=== PATIENT | female | born 1945 | race Native Hawaiian/Other Pacific Islander ===

== ENCOUNTER 2017-09-17 16:01 | Observation (INO) | payer MEDICARE ==
[2017-09-17 16:01] VITALS: BMI 26.0
--- NOTE | 2017-09-17 17:29 | C.PDOC ---
History Of Present Illness 71yo female with history of DM, hypertension, presents to ED for evaluation of sudden onset blurry vision bilaterally. 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 She reports the symptoms resolved spontaneously after a few seconds. She denies any headache or persistent vision changes but she feels as if her head is "heavy." She reports feeling lightheaded and states she has been feeling such over the pat couple weeks. She admits she is non-compliant with her medications for hypertension but took Lisinopril 20mg PO today. She is complaint with her diabetes medication and takes Metformin as prescribed. Patient denies any chest pain, sensoyr changesm facial droop, slurred speech, palpitations, shortness of breath. No other complaints. Time Seen by Provider: 09/17/17 16:30 Chief Complaint (Nursing): Dizziness/Lightheaded History Per: Patient History/Exam Limitations: no limitations Onset/Duration Of Symptoms: Hrs Current Symptoms Are (Timing): Better Activity At Onset Of Symptoms: Standing Seizure Or Post-ictal Symptoms: None Fall Associated With With Symptoms: Yes Additional History Per: Patient Past Medical History Reviewed: Historical Data, Nursing Documentation, Vital Signs Vital Signs: Last Vital Signs Temp 98.2 F 09/18/17 22:00 Pulse 81 09/19/17 08:28 Resp 20 09/18/17 22:00 BP 109/64 09/18/17 22:00 Pulse Ox 95 09/18/17 22:00 - Medical History PMH: Diabetes, Fractures (left hip replacement after fall), Gall Bladder Disease (gallstone/ cholectstectomy), HTN Surgical History: Cholecystectomy, Other Surgeries: hemorrhoidectomy, hip replacement, bunionectomy - [facility] Procedures HEMORRHOID PROCEDURE NEC (09/22/14) OCCUPATIONAL THERAPY (12/10/12) OTH LOCAL EXC OR DEST OF LESION OR TISSUE OF ANUS (09/22/14) PARTIAL HIP REPLACEMENT (12/07/12) PHYSICAL THERAPY NEC (12/10/12) RECREATIONAL THERAPY (12/10/12) Family History: States: No Known Family Hx - Social History Hx Tobacco Use: No Hx Alcohol Use: No Hx Substance Use: No - Immunization History Hx Tetanus Toxoid Vaccination: No Hx Influenza Vaccination: No Hx Pneumococcal Vaccination: No Review Of Systems Constitutional: Negative for: Fever, Chills Eyes: Positive for: Vision Change (blurry vision, now resolved) Cardiovascular: Positive for: Light Headedness. Negative for: Chest Pain, Palpitations Respiratory: Negative for: Shortness of Breath Neurological: Positive for: Other (heavyness in head). Negative for: Weakness, Numbness, Incoordination, Change in Speech, Confusion, Seizures, Altered Mental Status, Headache Physical Exam - Physical Exam Appears: Well, Non-toxic, No Acute Distress Skin: Normal Color, Warm, Dry Head: Atraumatic, Normacephalic Eye(s): bilateral: Normal Inspection (no nystagmus ), PERRL, EOMI Oral Mucosa: Moist Neck: Normal, Normal ROM, Supple Cardiovascular: Rhythm Regular Respiratory: Normal Breath Sounds, No Rales, No Rhonchi, No Wheezing Gastrointestinal/Abdominal: Normal Exam, Bowel Sounds, Soft, No Tenderness Back: Normal Inspection Extremity: Normal ROM, No Pedal Edema, No Calf Tenderness Pulses: Left Dorsalis Pedis: Normal, Right Dorsalis Pedis: Normal Neurological/Psych: Oriented x3, Normal Speech, Normal Cognition, Normal Cranial Nerves, No Cerebellar Signs (normal), Normal Motor, Normal Sensation, Normal Reflexes, No Dysarthria, No Romberg Gait: Steady ED Course And Treatment - Laboratory Results Result Diagrams: 09/17/17 17:50 09/17/17 17:50 ECG: Interpreted By Me, Viewed By Me ECG Rhythm: Sinus Rhythm ECG Interpretation: Normal Interpretation Of ECG: Normal axis, no acute ST/T wave changes Rate From EC (bpm) O2 Sat by Pulse Oximetry: 96 (RA) Pulse Ox Interpretation: Normal - CT Scan/US CT HEAD Other Rad Studies (CT/US): Read By Radiologist, Radiology Report Reviewed CT/US Interpretation: Accession No. : [id number]. Patient Name / ID : JORGE SPEARS / [id number]. Exam Date : 09/17/2017 17:19:21 ( Approved ). Study Comment : Sex / Age : F / [id number]. Creator : Gt Hi MD. Dictator : Hide Curer : Alumnae Secretary : Gt Hi MD. Approver2 : Report Date : 09/17/2017 17:38:09. My Comment : . PROCEDURE: CT HEAD WITHOUT CONTRAST. HISTORY: dizziness, headache, blurry vision. COMPARISON: None available. TECHNIQUE: Axial computed tomography images were obtained through the head/ brain without intravenous contrast. Radiation dose: Total exam DLP = 781.81 mGy-cm. This CT exam was performed using one or more of the following dose reduction techniques: Automated exposure control, adjustment of the mA and/or kV according to patient size, and/or use of iterative reconstruction technique. FINDINGS: HEMORRHAGE: No acute parenchymal, subarachnoid or extra-axial hemorrhage. BRAIN: No evidence of large acute infarct. Mild chronic periventricular white matter ischemic changes. Suspect a small arachnoid cyst left middle cranial fossa. There is also prominent subarachnoid space in the left CP angle region extending posteriorly and inferiorly. . Mild generalized volume loss. Vascular calcifications carotid siphons and vertebral arteries. VENTRICLES: No obstructive hydrocephalus. CALVARIUM: No acute calvarial fractures. PARANASAL SINUSES: Unremarkable as visualized. No significant inflammatory changes. MASTOID AIR CELLS: Unremarkable as visualized. No inflammatory changes. OTHER FINDINGS: Orbits and contents unremarkable. IMPRESSION: No acute intracranial hemorrhage. Mild chronic periventricular white matter ischemic changes felt to be present. Mild generalized volume loss with suspected arachnoid cyst left middle cranial fossa. Prominent subarachnoid space left CP angle region extending posteriorly and inferiorly Progress Note: Blood work, EKG, CXR, CT Head ordered and reviewed. PO ASA given after CT head neg for acute bleed. - Physician Consult Information Physician Contacted: Radha Thomas Outcome Of Conversation: Discussed patient with PMD, agrees with admission for visual changes, dizziness, possible TIA - requests Dr. Pacheco for neurology, consult entered. NIHSS Stroke Scale 2 - Date/Time Evaluation Performed Date Performed: 09/17/17 Time Performed: 16:15 When Was NIHSS Performed: Baseline - How Severe is the Stroke Level of Consciousness: 0=Alert LOC to Questions: 0=Both comments correct LOC to commands: 0=Obeys both correctly Best Gaze: 0=Normal Visual: 0=No visual loss Facial: 0=Normal Motor Arm - Left: 0=No drift Motor Arm - Right: 0=No drift Motor Leg - Left: 0=No drift Motor Leg - Right: 0=No drift Limb Ataxia: 0=Absent Sensory: 0=Normal Best Language: 0=No aphasia Dysarthia: 0=Normal articulation Extinction & Inattention (Neglect): 0=Normal, no object Score: 0 rTPA Inclusion/Exclusion - Refusal of Treatment Patient Refused Treatment: No - Inclusion Criteria for Altepase Patient is 18 years or Older: Yes The Clinical Diagnosis of Ischemic Stroke That is Causing a Potentially Disabling Neurological Deficit: No Time of Onset is Well Established to be Less Than 270 Minute Before Treatment Would Begin: Yes Risk/Benefit Discussed With Patient/Family Member Present: No Disposition - Disposition Disposition: HOSPITALIZED Disposition Time: 18:29 Condition: STABLE - Clinical Impression Clinical Impression: Dizziness, Visual changes, Ischemic changes on head CT, TIA (transient ischemic attack) - Scribe Statement The provider has reviewed the documentation as recorded by the Scribe (Mariel Rivera) Provider Attestation: All medical record entries made by the Scribe were at my direction and personally dictated by me. I have reviewed the chart and agree that the record accurately reflects my personal performance of the history, physical exam, medical decision making, and the department course for this patient. I have also personally directed, reviewed, and agree with the discharge instructions and disposition.
--- NOTE | 2017-09-17 17:39 | CT ---
PROCEDURE: CT HEAD WITHOUT CONTRAST. HISTORY: dizziness, headache, blurry vision COMPARISON: None available. TECHNIQUE: Axial computed tomography images were obtained through the head/brain without intravenous contrast. Radiation dose: Total exam DLP = 781.81 mGy-cm. This CT exam was performed using one or more of the following dose reduction techniques: Automated exposure control, adjustment of the mA and/or kV according to patient size, and/or use of iterative reconstruction technique. FINDINGS: HEMORRHAGE: No acute parenchymal, subarachnoid or extra-axial hemorrhage. BRAIN: No evidence of large acute infarct. Mild chronic periventricular white matter ischemic changes. Suspect a small arachnoid cyst left middle cranial fossa. There is also prominent subarachnoid space in the left CP angle region extending posteriorly and inferiorly. . Mild generalized volume loss. Vascular calcifications carotid siphons and vertebral arteries. VENTRICLES: No obstructive hydrocephalus. CALVARIUM: No acute calvarial fractures PARANASAL SINUSES: Unremarkable as visualized. No significant inflammatory changes. MASTOID AIR CELLS: Unremarkable as visualized. No inflammatory changes. OTHER FINDINGS: Orbits and contents unremarkable IMPRESSION: No acute intracranial hemorrhage. Mild chronic periventricular white matter ischemic changes felt to be present. Mild generalized volume loss with suspected arachnoid cyst left middle cranial fossa. Prominent subarachnoid space left CP angle region extending posteriorly and inferiorly
[2017-09-17 17:55] LABS: BASO % 0.6 % (0.0-2.0); EOS # 0.2 K/uL (0.0-0.7); EOS % 2.7 % (0.0-4.0); HEMOGLOBIN 14.8 g/dL (11.0-16.0); LYMPH # 2.8 K/uL (1.0-4.3); LYMPH % 43.6 % (20.0-40.0); MEAN CELL VOLUME 89.2 fL (81.0-99.0); MEAN CORPUSCULAR HEMOGLOBIN 30.4 pg (27.0-31.0); MEAN CORPUSCULAR HGB CONC 34.1 g/dL (33.0-37.0); MONO # 0.4 K/uL (0.0-0.8); MONO % 6.1 % (0.0-10.0); RBC 4.85 Mil/uL (3.80-5.20); RED CELL DISTRIBUTION WIDTH 12.3 % (11.5-14.5); WHITE BLOOD COUNT 6.4 K/uL (4.8-10.8)
[2017-09-17 18:04] LABS: PROTHROMBIN TIME 10.6 SECONDS (9.7-12.2)
[2017-09-17 18:11] LABS: ALB/GLOB RATIO 1.1 (1.0-2.1); ALBUMIN 4.6 g/dL (3.5-5.0); ALT/SGPT 24 U/L (9-52); AST/SGOT 31 U/L (14-36); BLOOD UREA NITROGEN 14 mg/dL (7-17); CALCIUM 9.6 mg/dl (8.6-10.4); GFR AFRICAN-AMERICAN > 60; GFR NON-AFRICAN AMERICAN > 60
[2017-09-17 18:30] LABS: CK-MB 0.31 ng/mL (0.0-3.38)
--- NOTE | 2017-09-17 20:25 | CP.PCM.HP ---
History of Present Illness - History of Present Illness History of Present Illness: 71 years old female with PMH NIDDM2 Hypertension Cholesterol Post Left hip replacement secondary to fall yeras ago patient was brought to Er due to near syncope - patient reports that she was at work today, felt dizzy , vision became blurred feeling nauseated but did not vomit , and feeling she will pass out but did not have actual syncope, this lasted few seconds. she was brought to ER - and found to have elevated blood pressure. Patient reports she had on and off dizziness since last week, she also admits that she was not taking her BP and other meds regularly, She feels her Bp was high but she was not able to check her BP. Patient denies fever, cough , chest pain abdominal pain urinary problem she also reports chronic abnormalities in vision - seeing light streaks on and off - which she had seen her eye doctor and planning to have follow up PMH as above Meds netformin lisinopril simvastatin Surgical left hip replacement from fall years ago Social non etoh non smoker lives with family Immunization Present on Admission - Present on Admission Any Indicators Present on Admission: No History of DVT/PE: No History of Uncontrolled Diabetes: No Urinary Catheter: No Decubitus Ulcer Present: No Review of Systems - Constitutional Constitutional: Other (dizziness, nausea blurry vision ) - EENT Eyes: Blurred Vision (but no loss of vision ). absent: Loss of Vision Ears: Dizziness. absent: Ear Pain Nose/Mouth/Throat: absent: Epistaxis, Dysphagia - Breasts Breasts: absent: Pain - Cardiovascular Cardiovascular: absent: Chest Pain, Diaphoresis, Dyspnea, Syncope - Respiratory Respiratory: absent: Dyspnea, Wheezing, Chest Congestion - Gastrointestinal Gastrointestinal: Change in Bowel Habits, Diarrhea. absent: Vomiting - Genitourinary Genitourinary: Dysuria. absent: Difficulty Urinating, Flank Pain - Reproductive: Female Reproductive:Female: Post Menopausal - Menstruation Menstruation: Post Menopausal - Musculoskeletal Musculoskeletal: Abnormal Gait ( from hip pain/hip surgery), Muscle Cramps (on and off ) - Integumentary Integumentary: absent: Rash, Skin Ulcer, Sores - Neurological Neurological: Dizziness, Other Visual Disturbances. absent: Abnormal Hearing, Abnormal Movements, Abnormal Speech, Behavioral Changes, Convulsions, Syncope - Psychiatric Psychiatric: Confusion, Depression. absent: Behavioral Changes, Hallucinations - Endocrine Endocrine: absent: Palpitations, Polydipsia, Polyphagia, Polyuria - Hematologic/Lymphatic Hematologic: absent: Easy Bleeding, Easy Bruising Past Patient History - Past Medical History & Family History Past Medical History?: Yes - Past Social History Smoking Status: Never Smoked - CARDIAC Hx Hypertension: Yes - PULMONARY Hx Respiratory Disorders: No - NEUROLOGICAL Hx Neurological Disorder: No - HEENT Hx HEENT Problems: Yes Hx Cataracts: Yes - RENAL Hx Chronic Kidney Disease: No - ENDOCRINE/METABOLIC Hx Endocrine Disorders: Yes Hx Diabetes Mellitus Type 2: Yes - HEMATOLOGICAL/ONCOLOGICAL Hx Blood Disorders: No - INTEGUMENTARY Hx Dermatological Problems: No - MUSCULOSKELETAL/RHEUMATOLOGICAL Hx Fractures: Yes (left hip replacement after fall) - GASTROINTESTINAL Hx Gall Bladder Disease: Yes (gallstone/ cholectstectomy) - GENITOURINARY/GYNECOLOGICAL Hx Genitourinary Disorders: Yes Hx Urinary Tract Infection: Yes (Currently being treated with Cipro) - PSYCHIATRIC Hx Substance Use: No - SURGICAL HISTORY Hx Cholecystectomy: Yes - ANESTHESIA Hx Anesthesia: Yes Hx Anesthesia Reactions: No Hx Malignant Hyperthermia: No Meds Allergies/Adverse Reactions: Allergies Allergy/AdvReac Type Severity Reaction Status Date / Time No Known Allergies Allergy Verified 09/17/17 16:14 Physical Exam - Constitutional Appears: Other (in bed, conversant, smiling, turning side to side makes her feel dizzy) - Head Exam Head Exam: ATRAUMATIC, NORMAL INSPECTION, NORMOCEPHALIC - Eye Exam Eye Exam: Normal appearance. absent: Nystagmus - ENT Exam ENT Exam: Mucous Membranes Moist (ears no lesion ) - Neck Exam Neck exam: Positive for: Full Rom. Negative for: Tenderness - Respiratory Exam Respiratory Exam: Clear to Auscultation Bilateral, NORMAL BREATHING PATTERN - Cardiovascular Exam Cardiovascular Exam: REGULAR RHYTHM - GI/Abdominal Exam GI & Abdominal Exam: Normal Bowel Sounds, Soft. absent: Distended, Tenderness - Extremities Exam Extremities exam: Positive for: full ROM, pedal pulses present. Negative for: joint swelling, pedal edema, tenderness - Back Exam Back exam: FULL ROM. absent: rash noted, tenderness - Neurological Exam Neurological exam: Alert, Normal Gait (uses cane - to support gait , history of hip surgery ), Oriented x3, Reflexes Normal - Psychiatric Exam Psychiatric exam: Normal Affect, Normal Mood - Skin Skin Exam: Intact, Normal Color Results - Vital Signs Recent Vital Signs: Last Vital Signs Temp 98 F 09/17/17 19:57 Pulse 90 09/17/17 19:57 Resp 18 09/17/17 19:57 BP 143/76 09/17/17 19:57 Pulse Ox 96 09/17/17 19:57 - Labs Result Diagrams: 09/17/17 17:50 09/17/17 17:50 Labs: Laboratory Results - last 24 hr 09/17/17 09/17/17 09/17/17 16:13 17:50 17:50 WBC 6.4 RBC 4.85 Hgb 14.8 Hct 43.2 MCV 89.2 D MCH 30.4 MCHC 34.1 RDW 12.3 Plt Count 200 MPV 9.0 Neut % (Auto) 47.0 L Lymph % (Auto) 43.6 H [place] % (Auto) 6.1 Eos % (Auto) 2.7 Baso % (Auto) 0.6 Neut # (Auto) 3.0 Lymph # (Auto) 2.8 Randolph # (Auto) 0.4 Eos # (Auto) 0.2 Baso # (Auto) 0.0 PT 10.6 INR 1.0 APTT 41 H Sodium Potassium Chloride Carbon Dioxide Anion Gap BUN Creatinine Est GFR ( Amer) Est GFR (Non-Af Amer) POC Glucose (mg/dL) 109 Random Glucose Calcium Total Bilirubin AST ALT Alkaline Phosphatase Total Creatine Kinase CK-MB (Mass) Troponin I Total Protein Albumin Globulin Albumin/Globulin Ratio 09/17/17 09/17/17 17:50 17:56 WBC RBC Hgb Hct MCV MCH MCHC RDW Plt Count MPV Neut % (Auto) Lymph % (Auto) Randolph % (Auto) Eos % (Auto) Baso % (Auto) Neut # (Auto) Lymph # (Auto) Randolph # (Auto) Eos # (Auto) Baso # (Auto) PT INR APTT Sodium 145 Potassium 4.1 Chloride 102 Carbon Dioxide 28 Anion Gap 18 BUN 14 Creatinine 0.7 Est GFR ( Amer) > 60 Est GFR (Non-Af Amer) > 60 POC Glucose (mg/dL) 109 Random Glucose 108 H Calcium 9.6 Total Bilirubin 0.3 AST 31 ALT 24 Alkaline Phosphatase 63 Total Creatine Kinase 47 CK-MB (Mass) 0.31 Troponin I < 0.0120 Total Protein 8.8 H Albumin 4.6 Globulin 4.3 H Albumin/Globulin Ratio 1.1 Assessment & Plan - Assessment and Plan (Free Text) Assessment: Patient with PMH NIDDM2, Hypertension Cholesterolnemia was admitted due to acute episode of near syncope, uncontrolled Hypertension ( secondary to non compliance , to Rule out TIA CT head no acute bleed- neurology consulted , telemetry monitoring post aspirin in ER Visual abnormalities, light streaks, blurry vision- discussed with ophthalmology will check LOWELL carotid Ultrasound Neurocheck Uncontrolled Hypertension, education- will resume meds, and monitor NIDDM2- will resume metformin Post Hip replacement left with chronic on and off pain uses cane- PT eval GI prophylaxis DVT prophylaxis
[2017-09-17] MEDS: Enoxaparin 30 mg Syringe SC SCH (21:45)
[2017-09-17 22:20] LABS: CK-MB 0.27 ng/mL (0.0-3.38)
--- NOTE | 2017-09-18 06:25 | CP.PCM.PN ---
Subjective - Date & Time of Evaluation Date of Evaluation: 09/18/17 Time of Evaluation: 10:00 - Subjective Subjective: Reviewing Vitals has been controlled and lab levels,, Patient seen- ongoing neuro evaluation / procedures, still some dizziness tolerable, eyee lights spark- discussed with ophtha- patient is aware of conditon and plan appetite okay no BM urinary complaints Objective - Vital Signs/Intake and Output Vital Signs (last 24 hours): Temp Pulse Resp BP Pulse Ox 97.7 F 67 20 118/62 95 09/18/17 04:10 09/18/17 04:10 09/18/17 04:10 09/18/17 04:10 09/18/17 04:10 - Medications Medications: Current Medications Aspirin (Aspirin Chewable) 81 mg PO DAILY [facility] Clopidogrel Bisulfate (Plavix) 75 mg PO DAILY [facility] Enoxaparin Sodium (Lovenox) 30 mg SC Q12 [facility] Last Admin: 09/17/17 21:45 Dose: 30 mg Famotidine (Pepcid) 40 mg PO DAILY [facility] Losartan Potassium (Cozaar) 50 mg PO DAILY [facility] Metformin HCl (Glucophage) 500 mg PO DAILY [facility] Multivitamins (Hexavitamin) 1 tab PO DAILY [facility] Rosuvastatin Calcium (Crestor) 10 mg PO HS [facility] Last Admin: 09/17/17 21:45 Dose: 10 mg - Labs Labs: 09/17/17 17:50 09/17/17 17:50 PT 10.6 SECONDS (9.7-12.2) 09/17/17 17:50 INR 1.0 09/17/17 17:50 APTT 41 SECONDS (21-34) H 09/17/17 17:50 - Constitutional Appears: Well, Non-toxic, No Acute Distress - Head Exam Head Exam: ATRAUMATIC, NORMOCEPHALIC - Eye Exam Eye Exam: Normal appearance - ENT Exam ENT Exam: Mucous Membranes Moist - Neck Exam Neck Exam: Full ROM. absent: Tenderness - Respiratory Exam Respiratory Exam: Clear to Ausculation Bilateral, NORMAL BREATHING PATTERN - Cardiovascular Exam Cardiovascular Exam: REGULAR RHYTHM - GI/Abdominal Exam GI & Abdominal Exam: Soft, Normal Bowel Sounds. absent: Tenderness - Extremities Exam Extremities Exam: Full ROM - Back Exam Back Exam: absent: rash noted - Neurological Exam Neurological Exam: Alert, Awake, Normal Gait (other than the post surgical leg ) , Oriented x3 - Psychiatric Exam Psychiatric exam: Normal Affect, Normal Mood - Skin Skin Exam: Intact, Normal Color Assessment and Plan - Assessment and Plan (Free Text) Assessment: Patient with DM hypertension presented with sign and symptom of TIA- ongoing neurological evaluation, DM controlled- Hypertension controlled discussion of compliance aspirin DVT and GI prophylaxis Post hip replacement patieny aware of condition and plan
[2017-09-18 06:31] LABS: SQUAMOUS EPITHIAL 2 /hpf (0-5); URINE BACTERIA RARE (<OCC); URINE BILIRUBIN NEGATIVE (NEGATIVE); URINE BLOOD 2+ (NEGATIVE); URINE CLARITY Hazy (Clear); URINE COLOR Yellow (YELLOW); URINE GLUCOSE (UA) NORMAL (Normal); URINE LEUKOCYTE ESTERASE 1+ Leu/uL (Negative); URINE PROTEIN NEGATIVE (NEGATIVE); URINE UROBILINOGEN NORMAL mg/dL (0.2-1.0)
--- NOTE | 2017-09-18 07:24 | CP.PCM.CON ---
History of Present Illness - History of Present Illness History of Present Illness: NEW VISUAL DISTURBANCES ?? [employer]ER [employer] NON COMPLIANT WITH HTN MEDS/DM EXAM LEFT CORTICAL AND RIGHT SUB CORTICAL DYSFUCNTION CAT ARACHNOID CYST IS INCIDENTAL Rx ASA / PLAVIX/ARB AND STATIN MRI/ECHO/CAROTID/EEG THANKS Past Patient History - Past Medical History & Family History Past Medical History?: Yes - Past Social History Smoking Status: Never Smoked - CARDIAC Hx Hypertension: Yes - PULMONARY Hx Respiratory Disorders: No - NEUROLOGICAL Hx Neurological Disorder: No - HEENT Hx HEENT Problems: Yes Hx Cataracts: Yes - RENAL Hx Chronic Kidney Disease: No - ENDOCRINE/METABOLIC Hx Endocrine Disorders: Yes Hx Diabetes Mellitus Type 2: Yes - HEMATOLOGICAL/ONCOLOGICAL Hx Blood Disorders: No - INTEGUMENTARY Hx Dermatological Problems: No - MUSCULOSKELETAL/RHEUMATOLOGICAL Hx Fractures: Yes (left hip replacement after fall) - GASTROINTESTINAL Hx Gall Bladder Disease: Yes (gallstone/ cholectstectomy) - GENITOURINARY/GYNECOLOGICAL Hx Genitourinary Disorders: Yes Hx Urinary Tract Infection: Yes (Currently being treated with Cipro) - PSYCHIATRIC Hx Substance Use: No - SURGICAL HISTORY Hx Cholecystectomy: Yes - ANESTHESIA Hx Anesthesia: Yes Hx Anesthesia Reactions: No Hx Malignant Hyperthermia: No Meds Allergies/Adverse Reactions: Allergies Allergy/AdvReac Type Severity Reaction Status Date / Time No Known Allergies Allergy Verified 09/17/17 16:14 - Medications Medications: Current Medications Aspirin (Aspirin Chewable) 81 mg PO DAILY [facility] Clopidogrel Bisulfate (Plavix) 75 mg PO DAILY [facility] Enoxaparin Sodium (Lovenox) 30 mg SC Q12 [facility] Last Admin: 09/17/17 21:45 Dose: 30 mg Famotidine (Pepcid) 40 mg PO DAILY [facility] Losartan Potassium (Cozaar) 50 mg PO DAILY [facility] Metformin HCl (Glucophage) 500 mg PO DAILY [facility] Multivitamins (Hexavitamin) 1 tab PO DAILY [facility] Rosuvastatin Calcium (Crestor) 10 mg PO HS [facility] Last Admin: 09/17/17 21:45 Dose: 10 mg Results - Vital Signs Recent Vital Signs: Last Vital Signs Temp 97.7 F 09/18/17 04:10 Pulse 67 09/18/17 04:10 Resp 20 09/18/17 04:10 BP 118/62 09/18/17 04:10 Pulse Ox 95 09/18/17 04:10 - Labs Result Diagrams: 09/17/17 17:50 09/17/17 17:50 Labs: Laboratory Results - last 24 hr 09/17/17 09/17/17 09/17/17 16:13 17:50 17:50 WBC 6.4 RBC 4.85 Hgb 14.8 Hct 43.2 MCV 89.2 D MCH 30.4 MCHC 34.1 RDW 12.3 Plt Count 200 MPV 9.0 Neut % (Auto) 47.0 L Lymph % (Auto) 43.6 H [place] % (Auto) 6.1 Eos % (Auto) 2.7 Baso % (Auto) 0.6 Neut # (Auto) 3.0 Lymph # (Auto) 2.8 [place] # (Auto) 0.4 Eos # (Auto) 0.2 Baso # (Auto) 0.0 PT 10.6 INR 1.0 APTT 41 H Sodium Potassium Chloride Carbon Dioxide Anion Gap BUN Creatinine Est GFR ( Amer) Est GFR (Non-Af Amer) POC Glucose (mg/dL) 109 Random Glucose Calcium Total Bilirubin AST ALT Alkaline Phosphatase Total Creatine Kinase CK-MB (Mass) Troponin I Total Protein Albumin Globulin Albumin/Globulin Ratio 09/17/17 09/17/17 09/17/17 17:50 17:56 21:42 WBC RBC Hgb Hct MCV MCH MCHC RDW Plt Count MPV Neut % (Auto) Lymph % (Auto) [place] % (Auto) Eos % (Auto) Baso % (Auto) Neut # (Auto) Lymph # (Auto) [place] # (Auto) Eos # (Auto) Baso # (Auto) PT INR APTT Sodium 145 Potassium 4.1 Chloride 102 Carbon Dioxide 28 Anion Gap 18 BUN 14 Creatinine 0.7 Est GFR ( Amer) > 60 Est GFR (Non-Af Amer) > 60 POC Glucose (mg/dL) 109 Random Glucose 108 H Calcium 9.6 Total Bilirubin 0.3 AST 31 ALT 24 Alkaline Phosphatase 63 Total Creatine Kinase 47 67 CK-MB (Mass) 0.31 0.27 Troponin I < 0.0120 < 0.0120 Total Protein 8.8 H Albumin 4.6 Globulin 4.3 H Albumin/Globulin Ratio 1.1 09/17/17 21:50 WBC RBC Hgb Hct MCV MCH MCHC RDW Plt Count MPV Neut % (Auto) Lymph % (Auto) [place] % (Auto) Eos % (Auto) Baso % (Auto) Neut # (Auto) Lymph # (Auto) [place] # (Auto) Eos # (Auto) Baso # (Auto) PT INR APTT Sodium Potassium Chloride Carbon Dioxide Anion Gap BUN Creatinine Est GFR ( Amer) Est GFR (Non-Af Amer) POC Glucose (mg/dL) 153 H Random Glucose Calcium Total Bilirubin AST ALT Alkaline Phosphatase Total Creatine Kinase CK-MB (Mass) Troponin I Total Protein Albumin Globulin Albumin/Globulin Ratio
--- NOTE | 2017-09-18 07:56 | RAD ---
PROCEDURE: CHEST RADIOGRAPH, 1 VIEW HISTORY: visual changes, dizziness COMPARISON: Chest radiographs 09/15/2014. FINDINGS: LUNGS: Punctate granuloma again seen right apex inferiorly. Volume loss of the right upper lobe again evident with elevated minor fissure. No airspace disease bilaterally. PLEURA: No pneumothorax or pleural fluid seen. CARDIOVASCULAR: Normal. OSSEOUS STRUCTURES: No significant abnormalities. VISUALIZED UPPER ABDOMEN: Normal. OTHER FINDINGS: None. IMPRESSION: No interval acute cardiopulmonary disease appreciated.
[2017-09-18 08:05] LABS: HDL CHOLESTEROL 34 mg/dL (30-70)
[2017-09-18 08:16] LABS: CK-MB 0.61 ng/mL (0.0-3.38)
[2017-09-18 08:17] LABS: LDL CHOLESTEROL 125 mg/dL (0-129)
[2017-09-18 08:48] LABS: PROLACTIN 10.3 ng/mL (3.0-18.9)
[2017-09-18] MEDS: Multiple Vitamins Tab PO SCH (09:58)
[2017-09-18] MEDS: Enoxaparin 30 mg Syringe SC SCH ×2 (09:58→21:18)
[2017-09-18] MEDS ORDERED: Pantoprazole 40 mg EC Tab PO SCH (10:00)
[2017-09-18 12:18] LABS: FREE T4 1.59 ng/dL (0.78-2.19)
--- NOTE | 2017-09-18 13:36 | VASCLAB ---
PROCEDURE: HISTORY: assess stenosis, Visual changes, Dizziness, Unsteady gait COMPARISON: None available. TECHNIQUE: Grayscale and duplex Doppler evaluation of the cervical carotid and vertebral arteries were performed. The common carotid, carotid bifurcations and cervical Internal Carotid Artery (ICA) and proximal External Carotid Artery (ECA) were evaluated. The vertebral arteries were evaluated for gross patency and flow direction. Report prepared by Weston Patrick, T FINDINGS: RIGHT CAROTID ARTERIES: 1. Common Carotid Artery: No significant focal plaque formation of the right common carotid artery. Maximum Peak Systolic velocity: 67.7 cm/sec: End-diastolic velocity 7.7 cm/sec. 2. Carotid Bifurcation: Heterogeneous plaque formation. Maximum Peak Systolic velocity: 40.5 cm/sec: End-diastolic velocity 7.3 cm/sec. 3. Internal Carotid Artery: Plaque description: Heterogeneous 3.1. Proximal Segment: Peak systolic velocity 37.2 cm/sec: End-diastolic velocity 10.4 cm/sec - % stenosis 0-15% 3.2. Middle Segment: Peak systolic velocity 61.4 cm/sec: End-diastolic velocity 15.1 cm/sec - % stenosis 3.3. Distal Segment: Peak systolic velocity 49.4 cm/sec: End-diastolic velocity 15.9 cm/sec - % stenosis 4. External Carotid Artery: No significant focal plaque formation. Peak systolic velocity 61.4 cm/sec 5. ICA/CCA Ratio: 1.1 LEFT CAROTID ARTERIES: 1. Common Carotid Artery: No significant focal plaque formation of the left common carotid artery. Maximum Peak Systolic velocity: 64.4 cm/sec: End-diastolic velocity 15.1 cm/sec. 2. Carotid Bifurcation: Heterogeneous plaque formation. Maximum Peak Systolic velocity: 42.9 cm/sec: End-diastolic velocity 4.9 cm/sec. 3. Internal Carotid Artery: Plaque description: Heterogeneous 3.1. Proximal Segment: Peak systolic velocity 47.8 cm/sec: End-diastolic velocity 13.1 cm/sec - % stenosis 0-15% 3.2. Middle Segment: Peak systolic velocity 60.5 cm/sec: End-diastolic velocity 17.8 cm/sec - % stenosis 3.3. Distal Segment: Peak systolic velocity 56.1 cm/sec: End-diastolic velocity 15.0 cm/sec - % stenosis 4. External Carotid Artery: No significant focal plaque formation. Peak systolic velocity 48.0 cm/sec 5. ICA/CCA Ratio: 1.1 VERTEBRAL ARTERIES: 1. Right Vertebral Artery: The right vertebral artery flow direction is antegrade. 2. Left Vertebral Artery: The left vertebral artery flow direction is antegrade. OTHER FINDINGS: 1. Right Brachial Blood pressure: mmHg. 2. Left Brachial Blood pressure: mmHg. IMPRESSION: RIGHT: Duplex scan does suggest Less than 30% Non hemodynamically stenosis of the right Internal Carotid Artery. LEFT: Duplex scan does suggest Less than 30% Non hemodynamically stenosis of the left Internal Carotid Artery.
--- NOTE | 2017-09-18 15:44 | CARD ---
APPROVED REPORT EXAM: Two-dimensional and M-mode echocardiogram with Doppler and color Doppler. Other Information Quality : GoodRhythm : INDICATION Dizziness and Vertigo Syncope 2D DIMENSIONS IVSd1.1 (0.7-1.1cm)LVDd3.2 (3.9-5.9cm) PWd1.1 (0.7-1.1cm)LVDs1.7 (2.5-4.0cm) FS (%) 47.2 %LVEF (%)79.9 (>50%) M-Mode DIMENSIONS RVDd1.76 (2.1-3.2cm)Left Atrium (MM)3.13 (2.5-4.0cm) IVSd1.17 (0.7-1.1cm)Aortic Root3.23 (2.2-3.7cm) LVDd4.00 (4.0-5.6cm)Aortic Cusp Exc.1.92 (1.5-2.0cm) PWd0.98 (0.7-1.1cm)FS (%) 44 % LVDs2.25 (2.0-3.8cm)LVEF (%)76 (>50%) Aortic Valve AI P 1/2 [id number] Mitral Valve MV E Cavfuiqw16.3cm/sMV A Xwifppbf95.8cm/sE/A ratio1.0 TDI E/Lateral E'0.0E/Medial E'0.0 Tricuspid Valve TR Peak [id number]/sTR Peak [id number] LEFT VENTRICLE The left ventricle is normal size. There is normal left ventricular wall thickness. The left ventricular function is normal. The left ventricular ejection fraction is within the normal range. There is normal LV segmental wall motion. Transmitral Doppler flow pattern is normal for age. RIGHT VENTRICLE The right ventricle is normal size. The right ventricular systolic function is normal. ATRIA The left atrium size is normal. The right atrium size is normal. AORTIC VALVE The aortic valve is normal in structure. There is trace to mild aortic regurgitation. There is no aortic valvular stenosis. MITRAL VALVE The mitral valve is normal in structure. There is no mitral valve regurgitation noted. TRICUSPID VALVE The tricuspid valve is normal in structure. There is trace to mild tricuspid regurgitation. Right ventricular systolic pressure is estimated at less than 30 mmHg. PULMONIC VALVE The pulmonary valve is normal in structure. There is trace to mild pulmonic valvular regurgitation. GREAT VESSELS The aortic root is normal in size. The IVC is normal in size and collapses >50% with inspiration. PERICARDIAL EFFUSION There is no pericardial effusion. <Conclusion> Normal bi-ventricular function. No significant valvular abnormality. No pericardial effusion.
--- NOTE | 2017-09-18 18:48 | MRI ---
PROCEDURE: MRI BRAIN WITHOUT CONTRAST HISTORY: [employer] ISCHEMIC PROCESS COMPARISON: Comparison made with prior CT scan brain 09/17/2017. TECHNIQUE: Multiplanar, multisequence MR images of the brain were obtained without intravenous contrast enhancement. FINDINGS: HEMORRHAGE: No acute parenchymal, subarachnoid or extra-axial hemorrhage. No evidence hemosiderin deposition seen on gradient echo weighted sequence. DWI: No evidence of an acute or early subacute infarction seen on diffusion imaging. . BRAIN PARENCHYMA: Mild chronic periventricular white matter ischemic changes are seen to better advantage on this exam. In addition, there are multiple small chronic appearing lacunar type infarcts scattered about the deep and subcortical white matter both cerebral hemispheres. Note again made of what appears represent incidental small arachnoid cyst left middle cranial fossa. . Prominent appearing subarachnoid space left CP angle extending posteriorly adjacent to the anterior superior margin of the left cerebellum No obvious parenchymal nor extra-axial masses. Mild moderate generalized volume loss. VENTRICLES: No obstructive hydrocephalus. CRANIUM: Unremarkable. ORBITS: Grossly unremarkable. PARANASAL SINUSES/MASTOIDS: Clear VASCULAR SYSTEM: Visualized major vascular flow voids at skull base patent. OTHER FINDINGS: None. IMPRESSION: No acute intracranial hemorrhage or infarct. Mild chronic periventricular white matter ischemic changes are seen to better advantage on this exam. In addition, there are multiple small chronic appearing lacunar type infarcts scattered about the deep and subcortical white matter both cerebral hemispheres. Note again made of what appears represent incidental small arachnoid cyst left middle cranial fossa. . Prominent appearing subarachnoid space left CP angle extending posteriorly adjacent to the anterior superior margin left cerebellum No obvious parenchymal nor extra-axial masses. Mild moderate generalized volume loss.
--- NOTE | 2017-09-18 18:48 | CON ---
DATE: 09/18/2017 ATTENDING PHYSICIAN: . Room number 65, bed A REASON FOR CONSULTATION: Visual disturbances. CHIEF COMPLAINT: The patient was brought into [facility] from her job with a history of abrupt onset of blurry vision. HISTORY OF PRESENT ILLNESS: Ms. Jeannie Choi is a 71-year-old, while she was at work in the sitting position after taking lisinopril, usually she does not comply with her medication, following taking lisinopril she noticed both eyes were losing vision with zigzag lines. The symptom lasted for seconds. No association with headache preceding after this event. No association with a double vision, speech or swallow dysfunction. No history of focal weakness or sensory deficit following these symptoms. Never had this problem in the past. PAST MEDICAL HISTORY: Hypertension and dyslipidemia and left hip replacement in 2012. PERSONAL HISTORY: Denies smoking or alcohol use. ALLERGIES: NO KNOWN ALLERGIES. MEDICATIONS: Aspirin, Cozaar, Crestor, Glucophage, Lovenox, Pepcid. REVIEW OF SYSTEM: Twelve-point system being reviewed from neuro, blurry vision. PHYSICAL EXAMINATION: VITAL SIGNS: Blood pressure 118/62, mean arterial pressure of 80, respiratory rate 16, temperature afebrile. NECK: Supple. No carotid bruits. HEART: Sounds regular. CHEST: Fair air entry. EXTREMITIES: No edema in legs. NEUROLOGIC: Mental status: She is awake, alert, and oriented to person, place, and time. Speech is clear. Naming, repetition, fluency, comprehension all within normal limits. Cranial nerves examination: Visual field intact. Pupils reactive to light. Extraocular movement normal. No nystagmus. No facial sensory deficit. There is a facial asymmetry manifesting as flattening of the right nasolabial fold. Hearing is normal. Tongue is midline. Good gag. Motor examination: Outstretched hand with eyes closed, mild right upper extremity elevation on eyes closed. Both lower extremities, she could able to lift without any difficulty. Motor examination: Subjective weakness on the right side. Otherwise, strength in the upper extremities are normal. Lower extremities seem to be intact. Deep tendon reflexes: Biceps, brachialis, triceps hyperreflexic on the right side to compare with the left side; left knee 3+, right knee trace, both ankles are 1+. Plantars are upgoing on her left side and right side was downgoing. Sensory examination: Mild distal sensory motor neuropathy. Gait is deferred at this time. DIAGNOSTIC DATA: CT of the head, which was reviewed by me does not show any acute pathology. There is mild volume loss with arachnoid cyst in left middle cranial fossa, which is chronic process not related to her present problem. LABORATORY DATA: WBC 6.4, hemoglobin 14.8, hematocrit 43.2, platelet 200. PT 10.6, INR 1, PTT 41. Sodium 145, potassium 4.1, chloride 102, bicarbonate 28, GFR more than 60, glucose 153. Troponin 0.0120. Protein 8.8 and albumin 4.6. CONCLUSION: Ms. Jeannie Choi has been presenting with as per neurological examination suggestive of posterior cerebral artery ischemic process consistent with bilateral occipital dysfunction. The current examination does not show any evidence of temporal arteritis or giant cell arteritis. The examination also showed elevation of the upper extremity during eyes closed suggestive of left parietal dysfunction associating with right subcortical dysfunction manifesting with Babinski sign on the left side. Her symptoms and signs are suggestive of multifactorial causes. These all related to her poorly controlled hypertension, probable dyslipidemia. 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 RECOMMENDATIONS: In addition to aspirin, I would like to add Plavix for better coverage for ischemic process. She will continue metformin and rosuvastatin with losartan. The patient is scheduled to have MRI of the brain and carotid Doppler and blood workup for hypercoagulable state as well as inflammatory process to rule out any hidden arteritis. The patient will be followed closely while she is in the hospital. Bradley Pacheco MD
--- NOTE | 2017-09-18 19:27 | CARD ---
APPROVED REPORT EKG Measurement Heart [id number] <Conclusion> Normal sinus rhythm Normal ECG
[2017-09-19 01:10] VITALS: BP 109/64; RESP 20; TEMP 98.2
--- NOTE | 2017-09-19 05:58 | CP.PCM.PN ---
Subjective - Date & Time of Evaluation Date of Evaluation: 09/19/17 Time of Evaluation: 08:04 - Subjective Subjective: review of labs showed abnormal urine with blood, esterase positive, patient claims no urinary complaints, will repeat Discusssion with Neuro patient had ischemic changes , placed on Plavix patient aware current vitals controlled, appetite good ambulates repeat urine done as discussed with patient Objective - Vital Signs/Intake and Output Vital Signs (last 24 hours): Temp Pulse Resp BP Pulse Ox 98.2 F 88 20 109/64 95 09/18/17 22:00 09/19/17 04:05 09/18/17 22:00 09/18/17 22:00 09/18/17 22:00 - Medications Medications: Current Medications Aspirin (Aspirin Chewable) 81 mg PO DAILY [facility] Last Admin: 09/18/17 09:57 Dose: 81 mg Clopidogrel Bisulfate (Plavix) 75 mg PO DAILY [facility] Last Admin: 09/18/17 09:57 Dose: 75 mg Enoxaparin Sodium (Lovenox) 30 mg SC Q12 [facility] Last Admin: 09/18/17 21:18 Dose: 30 mg Famotidine (Pepcid) 40 mg PO DAILY [facility] Last Admin: 09/18/17 09:58 Dose: 40 mg Losartan Potassium (Cozaar) 50 mg PO DAILY [facility] Last Admin: 09/18/17 09:58 Dose: 50 mg Metformin HCl (Glucophage) 500 mg PO DAILY [facility] Last Admin: 09/18/17 09:49 Dose: 500 mg Multivitamins (Hexavitamin) 1 tab PO DAILY [facility] Last Admin: 09/18/17 09:58 Dose: 1 tab Rosuvastatin Calcium (Crestor) 10 mg PO HS [facility] Last Admin: 09/18/17 21:18 Dose: 10 mg - Labs Labs: 09/17/17 17:50 09/17/17 17:50 PT 10.6 SECONDS (9.7-12.2) 09/17/17 17:50 INR 1.0 09/17/17 17:50 APTT 41 SECONDS (21-34) H 09/17/17 17:50 - Constitutional Appears: Non-toxic, No Acute Distress, Other (smiles, aware of condition as discussed by neuro earlier) - Head Exam Head Exam: ATRAUMATIC - Eye Exam Eye Exam: Normal appearance. absent: Nystagmus - ENT Exam ENT Exam: Mucous Membranes Moist - Neck Exam Neck Exam: Full ROM - Respiratory Exam Respiratory Exam: Clear to Ausculation Bilateral, NORMAL BREATHING PATTERN - Cardiovascular Exam Cardiovascular Exam: REGULAR RHYTHM - GI/Abdominal Exam GI & Abdominal Exam: Soft, Normal Bowel Sounds. absent: Tenderness - Neurological Exam Neurological Exam: Alert, Awake, Oriented x3. absent: Normal Gait (ambulates with cane - secondary to sequllae of hip replacement ) - Psychiatric Exam Psychiatric exam: Normal Affect, Normal Mood - Skin Skin Exam: Intact, Normal Color Assessment and Plan - Assessment and Plan (Free Text) Assessment: Patient with Hypertension DM, admitted for near syncope- neuro work up reveled ischemic chnges, placed on plavix, stable Hypertension- controlled DM good control discussion of compliance patient aware stable Abnormal urine- to repeat ,patient is asymptomatic - discussed with patient , Chronic hip pain tolerable , uses cane post therapy Visual abnormality- to follow up with ophthalmology can go home today and will follow up result folow up in the clinic next eunice
[2017-09-19 08:07] LABS: URINE BACTERIA MANY (<OCC); URINE BILIRUBIN NEGATIVE (NEGATIVE); URINE BLOOD 1+ (NEGATIVE); URINE CLARITY Hazy (Clear); URINE COLOR Yellow (YELLOW); URINE GLUCOSE (UA) NORMAL (Normal); URINE LEUKOCYTE ESTERASE TRACE Leu/uL (Negative); URINE PROTEIN NEGATIVE (NEGATIVE); URINE UROBILINOGEN NORMAL mg/dL (0.2-1.0)
--- NOTE | 2017-09-19 08:07 | CP.PCM.DIS ---
Provider - Provider Date of Admission: 09/17/17 18:29 Attending physician: Radha Thomas MD Time Spent in preparation of Discharge (in minutes): 30 Hospital Course - Lab Results Lab Results: Most Recent Lab Values WBC 6.4 K/uL (4.8-10.8) 09/17/17 17:50 RBC 4.85 Mil/uL (3.80-5.20) 09/17/17 17:50 Hgb 14.8 g/dL (11.0-16.0) 09/17/17 17:50 Hct 43.2 % (34.0-47.0) 09/17/17 17:50 MCV 89.2 fL (81.0-99.0) D 09/17/17 17:50 MCH 30.4 pg (27.0-31.0) 09/17/17 17:50 MCHC 34.1 g/dL (33.0-37.0) 09/17/17 17:50 RDW 12.3 % (11.5-14.5) 09/17/17 17:50 Plt Count 200 K/uL (130-400) 09/17/17 17:50 MPV 9.0 fL (7.2-11.7) 09/17/17 17:50 Neut % (Auto) 47.0 % (50.0-75.0) L 09/17/17 17:50 Lymph % (Auto) 43.6 % (20.0-40.0) H 09/17/17 17:50 [place] % (Auto) 6.1 % (0.0-10.0) 09/17/17 17:50 Eos % (Auto) 2.7 % (0.0-4.0) 09/17/17 17:50 Baso % (Auto) 0.6 % (0.0-2.0) 09/17/17 17:50 Neut # (Auto) 3.0 K/uL (1.8-7.0) 09/17/17 17:50 Lymph # (Auto) 2.8 K/uL (1.0-4.3) 09/17/17 17:50 [place] # (Auto) 0.4 K/uL (0.0-0.8) 09/17/17 17:50 Eos # (Auto) 0.2 K/uL (0.0-0.7) 09/17/17 17:50 Baso # (Auto) 0.0 K/uL (0.0-0.2) 09/17/17 17:50 ESR 21 mm/hr (0-20) H 09/18/17 08:06 PT 10.6 SECONDS (9.7-12.2) 09/17/17 17:50 INR 1.0 09/17/17 17:50 APTT 41 SECONDS (21-34) H 09/17/17 17:50 Sodium 145 mmol/L (132-148) 09/17/17 17:50 Potassium 4.1 mmol/L (3.6-5.2) 09/17/17 17:50 Chloride 102 mmol/L (98-107) 09/17/17 17:50 Carbon Dioxide 28 mmol/L (22-30) 09/17/17 17:50 Anion Gap 18 (10-20) 09/17/17 17:50 BUN 14 mg/dL (7-17) 09/17/17 17:50 Creatinine 0.7 mg/dL (0.7-1.2) 09/17/17 17:50 Est GFR ( Amer) > 60 09/17/17 17:50 Est GFR (Non-Af Amer) > 60 09/17/17 17:50 POC Glucose (mg/dL) 133 mg/dL (65-110) H 09/19/17 07:02 Random Glucose 108 mg/dL (65-105) H 09/17/17 17:50 Hemoglobin A1c 6.8 % (4.2-6.5) H 09/18/17 08:06 Calcium 9.6 mg/dl (8.6-10.4) 09/17/17 17:50 Total Bilirubin 0.3 mg/dL (0.2-1.3) 09/17/17 17:50 AST 31 U/L (14-36) 09/17/17 17:50 ALT 24 U/L (9-52) 09/17/17 17:50 Alkaline Phosphatase 63 U/L (38-126) 09/17/17 17:50 Total Creatine Kinase 85 U/L (30-135) 09/18/17 07:31 CK-MB (Mass) 0.61 ng/mL (0.0-3.38) 09/18/17 07:31 Troponin I < 0.0120 ng/mL (0.00-0.120) 09/18/17 07:31 C-React Prot High Sens 0.41 mg/L (1.00-3.00) L 09/18/17 11:32 Total Protein 8.8 g/dL (6.3-8.3) H 09/17/17 17:50 Albumin 4.6 g/dL (3.5-5.0) 09/17/17 17:50 Globulin 4.3 gm/dL (2.2-3.9) H 09/17/17 17:50 Albumin/Globulin Ratio 1.1 (1.0-2.1) 09/17/17 17:50 Triglycerides 153 mg/dL (0-149) H 09/18/17 07:31 Cholesterol 183 mg/dL (0-199) 09/18/17 07:31 LDL Cholesterol Direct 125 mg/dL (0-129) 09/18/17 07:31 HDL Cholesterol 34 mg/dL (30-70) 09/18/17 07:31 Homocysteine 9.3 umol/L (4.7-12.6) 09/18/17 07:31 Free T4 1.59 ng/dL (0.78-2.19) 09/18/17 11:32 TSH 3rd Generation 2.87 mIU/L (0.46-4.68) 09/18/17 11:32 Prolactin 10.3 ng/mL (3.0-18.9) 09/18/17 07:31 Urine Color Yellow (YELLOW) 09/18/17 06:22 Urine Clarity Hazy (Clear) 09/18/17 06:22 Urine pH 5.0 (5.0-8.0) 09/18/17 06:22 Ur Specific [place] 1.011 (1.003-1.030) 09/18/17 06:22 Urine Protein Negative mg/dL (NEGATIVE) 09/18/17 06:22 Urine Glucose (UA) Normal mg/dL (Normal) 09/18/17 06:22 Urine Ketones Negative mg/dL (NEGATIVE) 09/18/17 06:22 Urine Blood 2+ (NEGATIVE) H 09/18/17 06:22 Urine Nitrate Negative (NEGATIVE) 06/07/18 06:22 Urine Bilirubin Negative (NEGATIVE) 09/18/17 06:22 Urine Urobilinogen Normal mg/dL (0.2-1.0) 09/18/17 06:22 Ur Leukocyte Esterase 1+ Karina/uL (Negative) H 09/18/17 06:22 Urine WBC (Auto) 32 /hpf (0-5) H 09/18/17 06:22 Urine RBC (Auto) 18 /hpf (0-3) H 09/18/17 06:22 Ur Squamous Epith Cells 2 /hpf (0-5) 09/18/17 06:22 Urine Bacteria Rare (<OCC) 09/18/17 06:22 RPR Nonreactive (NONREACTIVE) 09/18/17 11:32 - Hospital Course Hospital Course: patient with NIDDM2, Hypertension, admits non compliance to meds, admitted for near syncope neuro evaluation showed ischemic changes , placed on plavix, currently no weakness/paralysis, patient aware of condition discussion of compliance plan for home and follow up in the clinic Discharge Exam - Head Exam Head Exam: ATRAUMATIC - Eye Exam Eye Exam: Normal appearance - ENT Exam ENT Exam: Mucous Membranes Moist - Neck Exam Neck exam: Full Rom - Respiratory Exam Respiratory Exam: Clear to PA & Lateral, NORMAL BREATHING PATTERN - Cardiovascular Exam Cardiovascular Exam: REGULAR RHYTHM - GI/Abdominal Exam GI & Abdominal Exam: Normal Bowel Sounds - Back Exam Back exam: FULL ROM. absent: rash noted, tenderness - Neurological Exam Neurological exam: Alert, Normal Gait (other than uses cane as sequellae of hip surgery years ago), Oriented x3 - Psychiatric Exam Psychiatric exam: Normal Affect, Normal Mood - Skin Skin Exam: Intact, Normal Color Discharge Plan - Follow Up Plan Condition: GOOD Disposition: HOME/ ROUTINE
[2017-09-19 08:33] VITALS: PULSE 81
[2017-09-19] MEDS: Multiple Vitamins Tab PO SCH (09:32)
[2017-09-19] MEDS: Enoxaparin 30 mg Syringe SC SCH (09:33)
--- NOTE | 2017-09-19 09:33 | PN ---
DATE: 09/19/2017 TIME OF EVALUATION: 06:55 a.m. NEUROLOGICAL PROBLEM: Posterior cerebral artery dysfunction. PHYSICAL EXAMINATION: VITAL SIGNS: Blood pressure 109/64, mean arterial pressure of 79, respiratory rate 18, temperature afebrile. NEUROLOGIC: The patient awake, alert, ambulatory. She is walking herself to go into the bathroom and coming back to the bed. Speech is normal. No new episodes happened since she is admitted. The patient's examination today is unchanged consistent with multifactorial bilateral cerebral dysfunction. This is all related to her underlying noncompliance with hypertension, diabetes mellitus and dyslipidemia. Her workup, MRI of the brain consistent with small vessel and deep periventricular ischemic changes. The patient also showed arachnoid cyst on the left posterior fossa, which is incidental finding, nothing related to her current problem. RECOMMENDATION: Continue the present management with dual antiplatelets, statin and angiotensin receptor blockers or MARIA DEL ROSARIO inhibitors. The patient is advised to follow up with me as outpatient. If medically stable, the patient can be discharged. Bradley Pacheco MD
[2017-09-21 18:13] VITALS: O2SAT 96
== END 2017-09-19 11:41 | disposition home or self-care (01) ==
LOC: C.ER 16:01 → C.9E 18:29 → C.6T 19:55
PROVIDERS: ADMIT Internal Medicine; ATTEND Internal Medicine
DX: I10 Essential (primary) hypertension (principal); E11.40 Type 2 diabetes mellitus with diabetic neuropathy, unspecified; E78.5 Hyperlipidemia, unspecified; G89.29 Other chronic pain; Z79.84 Long term (current) use of oral hypoglycemic drugs; Z79.899 Other long term (current) drug therapy; Z96.642 Presence of left artificial hip joint; Z91.14 Patient's other noncompliance with medication regimen
CPT/HCPCS: 36415; 70450; 70551; 71045; 80053; 80061; 81001; 82550; 82553; 82948; 83036; 83090; 84146; 84439; 84443; 84484; 85025; 85610; 85651; 85730; 86140; 86334; 86592; 87086; 87181; 93005; 93306; 93880; 95812; 97116; 97162; 99285; G0378; G8978; G8979; J1650

== ENCOUNTER → 2018-07-21 | Outpatient (CLI) | payer MEDICARE | END | disposition home or self-care (01) | LOC: C.USIC 09:51 | DX: E04.1 Nontoxic single thyroid nodule (principal); J98.4 Other disorders of lung ==